=== PATIENT | female | born 1955 | race Caucasian/White ===

== ENCOUNTER 2021-10-02 13:09 | Emergency (ER) | payer OTHER, SELFPAY ==
[2021-10-02 13:19] VITALS: BP 160/77; PULSE 66; RESP 16; TEMP 36.1; O2SAT 100
--- NOTE | 2021-10-02 13:26 | ED.SKABFB ---
HPI - Skin/Abscess/Foreign Bdy General Chief complaint: Skin/Abscess/Foreign Body Stated complaint: abscess Time Seen by Provider: 10/02/21 13:28 Source: patient, RN notes reviewed and old records reviewed Mode of arrival: ambulatory Limitations: no limitations History of Present Illness HPI narrative: 65 year old female who presents to express care with complaints of abscess between her breast since last or Tuesday. Patient reports that she went to urgent care in [place] on Tuesday and was placed on Keflex. She reports that area has increased in size and redness and is more painful. Patient states that she had Zoom visit with her PCP and was told that she needed it drained. Patient has 2.5cm X 3cm red raised area between breast with induration. MD complaint: abscess/boil Onset (ago): day(s) Tetanus up to date: no Location: chest (between breast) Related Data Home Medications Medication Instructions Recorded Confirmed azelastine 137 mcg INTRANASAL DIRECTED 10/02/21 10/02/21 cephalexin 500 mg DIRECTED 10/02/21 10/02/21 estradiol [EstroGel] 1.25 g TOPICAL DIRECTED 10/02/21 10/02/21 sertraline 50 mg DIRECTED 10/02/21 10/02/21 valacyclovir 500 mg DIRECTED 10/02/21 10/02/21 Allergies Allergy/AdvReac Type Severity Reaction Status Date / Time Penicillins Allergy Itching Verified 10/02/21 13:40 Review of Systems Review of Systems: CONSTITUTIONAL: Denies fever, chills, or sweats. EYES: Denies visual changes, redness, or discharge. ENT: Denies rhinorrhea, congestion, sore throat, or otalgia. CARDIOVASCULAR: Denies chest pain, palpitations, or edema. RESPIRATORY: Denies cough or dyspnea. GASTROINTESTINAL: Denies abdominal pain, nausea, vomiting, or diarrhea. GENITOURINARY: Denies dysuria or hematuria. SKIN: 2.5cm X 3 cm red raised inflamed indurated tissue with white tissue size of pencil eraser in middle of red tissue, is painful to touch. MUSCULOSKELETAL: Denies back pain, joint pain, or myalgia. NEUROLOGIC: Denies headache, numbness, or weakness. PSYCHIATRIC: Positive for history of anxiety or depression. All systems reviewed & are unremarkable except as noted in HPI and below PMFSH Past Medical History Medical History (Updated 10/03/21 @ 11:11 by Nancy Ruiz NP) Depression Elevated cholesterol Genital herpes Surgical History Surgical History (Updated 10/02/21 @ 13:52 by Nancy Ruiz NP) H/O: hysterectomy Family History Family History (Updated 10/02/21 @ 13:53 by Nancy Ruiz NP) Mother Pancreatic cancer Sibling Hypertension Grandparent Alzheimers disease Social History Social History (Updated 10/03/21 @ 11:08 by Nancy Ruiz NP) Smoking packs per day: 1 Smoking cigarettes per day: 20.0 Years smoked: 8 Smoking pack-years: 8.00 Smoking status: Former smoker Alcohol intake: current Substance use: never Living arrangements: with family Gender identity (if verbalized by the patient): Female Comments At time of signature, agree with nursing past medical, surgical, social and family history. There is no relevant family history pertinent to the presenting complaint Exam Narrative: GENERAL: Well-appearing, well-nourished, and in no acute distress. HEAD: Normocephalic, atraumatic. EYES: PERRLA and EOMI. ENT: Nares clear, no rhinorrhea or epistaxis. Mucous membranes moist.TM's normal with good light reflex, throat pink with no lesions or exudates no tonsil swelling. NECK: Supple. no lymphadenopathy CHEST: Clear to auscultation. No respiratory distress. SAO2 100% on room air HEART: Regular rate and rhythm. No murmur heard. Normal peripheral pulses. ABDOMEN: Soft, nontender, nondistended, normal active bowel sounds. EXTREMITIES: Normal range of motion. No edema. SKIN: Warm, dry, 2.5cm X 3cm red raised inflamed tissue area with induration, painful to palpation NEURO: No focal deficits. Alert and oriented x3. Course Course Level of Care: Exp
[2021-10-02] MEDS: TETANUS,DIPHTHERIA,AC PERTUSSIS ADULT (0.5 ML) BOOSTRIX IM (13:57)
== END 2021-10-02 14:28 | disposition home or self-care (01) ==
PROVIDERS: Emergency Provider Registered Nurse
DX: L02.213 Cutaneous abscess of chest wall (principal); Z87.891 Personal history of nicotine dependence; F32.A Depression, unspecified; E78.00 Pure hypercholesterolemia, unspecified
CPT/HCPCS: 10060; 90471; 90715; 99213; G0463

== ENCOUNTER 2023-06-26 09:50 | Emergency (ER) | payer MEDICARE, SELFPAY ==
[2023-06-26 10:18] VITALS: BP 147/90; PULSE 76; RESP 20; TEMP 37.1; O2SAT 98
--- NOTE | 2023-06-26 10:24 | ED.URI ---
HPI - URI/Sore Throat General Chief Complaint: Upper Respiratory Infection Stated Complaint: SINUS/DRAINAGE/LOSING VOICE/SINUS PAIN/EARACHE Time Seen by Provider: 06/26/23 10:24 Source: patient Mode of arrival: ambulatory Limitations: no limitations History of Present Illness HPI Narrative: 67-year-old female presents with complaint of sinus pressure, nasal congestion, postnasal drainage, dry cough for 6 days. Afebrile. Patient reports a hoarse voice for 2 days. Takes Zyrtec and nasal spray daily. Has been using Mucinex with no relief of symptoms. Reports fatigue. All systems reviewed and negative except as noted above. Related Data Home Medications Medication Instructions Recorded Confirmed azelastine 137 mcg (0.1 %) nasal 137 mcg intranasal DIRECTED 10/02/21 06/26/23 spray aerosol estradiol 1.25 gram/actuation 1.25 g topical DIRECTED 10/02/21 06/26/23 (0.06%) transdermal gel pump (EstroGel) sertraline 50 mg tablet 50 mg DIRECTED 10/02/21 06/26/23 Allergies Allergy/AdvReac Type Severity Reaction Status Date / Time Penicillins Allergy Itching Verified 06/26/23 10:22 Review of Systems Review of Systems: CONSTITUTIONAL: Denies fever, chills, or sweats. Reports fatigue. EYES: Denies visual changes, redness, or discharge. ENT: Reports rhinorrhea, congestion, postnasal drainage. Denies sore throat, or otalgia. CARDIOVASCULAR: Denies chest pain, palpitations, or edema. RESPIRATORY: Reports cough. Denies dyspnea. GASTROINTESTINAL: Denies abdominal pain, nausea, vomiting, or diarrhea. GENITOURINARY: Denies dysuria or hematuria. SKIN: Denies rash or itching. MUSCULOSKELETAL: Denies back pain, joint pain, or myalgia. NEUROLOGIC: Denies headache, numbness, or weakness. PSYCHIATRIC: Denies anxiety or depression. All other systems reviewed are negative, except as documented in HPI. [facility] Past Medical History Medical History (Updated 06/26/23 @ 10:30 by Myrna Mckeon NP) Depression Elevated cholesterol Genital herpes Surgical History Surgical History (Updated 10/02/21 @ 13:52 by Nancy Ruiz NP) H/O: hysterectomy Family History Family History (Updated 10/02/21 @ 13:53 by Nancy Ruiz NP) Mother Pancreatic cancer Sibling Hypertension Grandparent Alzheimers disease Social History Social History (Updated 10/03/21 @ 11:08 by Nancy Ruiz NP) Smoking packs per day: 1 Smoking cigarettes per day: 20.0 Years smoked: 8 Smoking pack-years: 8.00 Smoking status: Former smoker Alcohol intake: current Substance use: never Living arrangements: with family Gender identity (if verbalized by the patient): Female Comments At time of signature, agree with nursing past medical, surgical, social and family history. There is no relevant family history pertinent to the presenting complaint. Exam Narrative: GENERAL: This is a well-nourished, well-developed patient, in no apparent distress. HEAD: normocephalic, atraumatic. EYES: PERRL. Sclera clear/white. Vision is grossly intact. EARS: External ears normal, auditory canals clear and without drainage, TMs normal without perforation. Hearing grossly intact. NOSE: External nose normal with clear nasal drainage, erythema and swelling to bilateral nares. THROAT: Mucous membranes moist, erythematous with postnasal drainage. No swelling or exudates. NECK: Neck supple, non-tender without lymphadenopathy, masses or thyromegaly. CARDIOVASCULAR: Regular rate and rhythm without murmurs, gallops, or rubs. RESPIRATORY: Clear to auscultation. Breath sounds equal bilaterally. No wheezes, rales, or rhonchi. SKIN: warm, Dry, intact with no suspicious lesions or rash, good texture and turgor. NEURO: awake, alert, and oriented to person, place and time. There were no obvious focal neurologic abnormalities. EXTREMITIES: No joint tenderness, effusion, or edema noted. Course Course Level of Care: Fidencio Chandra
== END 2023-06-26 10:42 | disposition home or self-care (01) ==
PROVIDERS: Emergency Provider Nurse Practitioner Family
DX: J04.0 Acute laryngitis (principal); F32.A Depression, unspecified; Z87.891 Personal history of nicotine dependence
CPT/HCPCS: 99213; G0463